=== PATIENT | male | born 1965 | race Caucasian/White ===

== ENCOUNTER 2018-11-11 09:32 | Observation (INO) ==
[2018-11-06 10:31] LABS: BASO# 0.09 X1000 (0.0-0.2); IMM GRAN# 0.02 X1000 (0.0-0.04); IMM GRAN% 0.2 % (0.0-0.5)
--- NOTE | 2018-11-06 10:36 | EKG Report ---
Test Performed on : 11/06/2018 10:19:17 AM Test Reason : PAT Blood Pressure : / mmHG Vent. Rate : 091 BPM Atrial Rate : 091 BPM P-R Int : 164 ms QRS Dur : 094 ms QT Int : 338 ms P-R-T Axes : 060 057 066 degrees QTc Int : 415 ms Normal sinus rhythm. Normal ECG No previous ECGs available Unconfirmed Result
[2018-11-06 12:16] LABS: EOS# 0.44 X1000 (0.0-0.7); EOS% 4.7 % (0.0-10.0); HEMOGLOBIN 16.9 g/dL (14.0-18.0); LYMPH# 1.95 X1000 (1.2-3.4); LYMPH% 20.7 % (20.5-51.1); MCH 32.4 PG (27-31); MCHC 34.5 g/dL (33-37); MCV 93.9 FL (81-99); MONO# 1.35 X1000 (0.11-0.59); MONO% 14.3 % (1.7-9.3); MPV 11.1 FL (7.4-10.4); NEUT# 5.56 X1000 (1.4-6.5); NEUT% 59.1 % (42.2-75.2); PLT 300 X1000 (130-400); RBC 5.22 XMIL (4.7-6.1); RDW 12.5 % (11.5-14.5); WBC 9.41 X1000 (4.8-10.8)
[2018-11-11] MEDS ORDERED: REGLAN ONE (10:35)
[2018-11-11] MEDS ORDERED: PEPCID ONE (10:35)
[2018-11-11] MEDS ORDERED: KEFZOL 1 GM/D5W 1 GM/50 ML IVPB ONE (10:35)
[2018-11-11] MEDS ORDERED: LR 1,000 ML ONE (10:35)
[2018-11-11] MEDS ORDERED: XYLOCAINE-MPF 1%/EPI 1:200,000 ONE (11:18)
[2018-11-11 11:19] LABS: AGAP 13; BUN 5 mg/dL (8-22); CALCIUM 11.2 mg/dL (8.8-10.2); CHLORIDE 98 mmol/L (98-107); COSMO 269; CREATININE 0.9 mg/dL (0.7-1.2); ESTIMATED GFR > 60; GLUCOSE 132 mg/dL (70-104); POTASSIUM 4.3 mmol/L (3.5-5.1); SODIUM 135 mmol/L (136-145); TCO2 24 mmol/L (25-35)
[2018-11-11] MEDS ORDERED: QUELICIN (DOSE) ONE (11:51)
[2018-11-11] MEDS ORDERED: XYLOCAINE-MPF 2% ONE (11:51)
[2018-11-11] MEDS ORDERED: DIPRIVAN 1% ONE (11:52)
[2018-11-11] MEDS ORDERED: ZEMURON ONE (12:11)
[2018-11-11] MEDS ORDERED: FENTANYL ONE (12:12)
[2018-11-11] MEDS ORDERED: ZOFRAN ONE (12:38)
[2018-11-11] MEDS ORDERED: DECADRON ONE (12:38)
[2018-11-11] MEDS ORDERED: ROBINUL ONE (13:12)
[2018-11-11] MEDS ORDERED: NEOSTIGMINE ONE (13:14)
[2018-11-11] MEDS ORDERED: MORPHINE ONE (13:58)
--- NOTE | 2018-11-11 14:29 | OPERATIVE NOTE ---
PROCEDURE DATE: 11/11/2018 PREOPERATIVE DIAGNOSIS: Primary hyperparathyroidism. POSTOPERATIVE DIAGNOSIS: Primary hyperparathyroidism. PRINCIPAL PROCEDURE: Right inferior parathyroidectomy. SURGEON: Radha Ross MD. HAND CEMENTER: Dr. Xavier Abbott. ANESTHESIA: General in addition to local anesthetic. ESTIMATED BLOOD LOSS: 20 mL. DRAINS: None. INDICATIONS: Mr. Adam Vasquez is a 53-year-old white male who is a patient of Dr. Haily Kan. He underwent laboratory evaluation as part of a yearly exam which documented a high calcium. PTH was checked and it was also high. These labs have been checked several times and continue to be both elevated, consistent with primary hyperparathyroidism. Preoperatively his calcium was 11.3 and his parathyroid hormone was 119. A sestamibi scan suggested that he had an enlarged right inferior parathyroid gland. FINDINGS: We only dissected the right side. We found an enlarged inferior parathyroid gland, dissected it free, removed it in its entirety, and sent it down to the pathologist and she documented that it was consistent with parathyroid hyperplasia. His thyroid was involuted or very small. He is on Synthroid regularly. We felt that we had found the enlarged parathyroid gland in the right inferior aspect of the thyroid gland like the sestamibi scan suggested. Our PTH level was actually very high and we were not confident that it was accurate. I was comfortable that we found an abnormal gland and we stopped the operation. We did not dissect the left side. DESCRIPTION OF PROCEDURE: The patient was brought to the operating room, placed supine, received general anesthesia, was intubated. He was placed in the reverse Trendelenburg position. His anterior neck was prepped and draped within a sterile field. He received Ancef prophylactically. I made an 8 cm curvilinear incision along the anterior aspect of the neck using a 15 blade scalpel after local anesthetic was infused. This incision was carried down through the skin, into the subcutaneous tissue, and then I used cautery to transect the rest of the subcutaneous tissue and platysma muscle. We created subplatysmal planes, both superiorly and inferiorly, again, mostly with blunt finger dissection and the cautery. I used a Gelpi for self-retaining retraction and also used handheld retractors. We created the midline inferiorly to superiorly using forceps to grab the strap muscles. As we defined the midline, I dissected the strap muscles off his thyroid gland which was quite small and involuted. Once I had the strap muscles completely off the right lobe of the thyroid, I used hemostats, forceps, and tissue scissors to separate the fat and identify this abnormal right parathyroid gland in the inferior aspect. Care was taken to remove it in its entirety. I used a small clip cleaner touch up worker to control the bleeding. It was sent to the pathologist for frozen section to assure that it was parathyroid tissue. While we were waiting for this frozen section result, I dissected more around the right thyroid lobe and did not find any more abnormal parathyroid tissue. We felt we preserved the right recurrent laryngeal nerve. We decided against dissecting the left side of the thyroid. We decided against leaving any drains. We reapproximated the strap muscles in the midline with interrupted 3-0 Vicryl stitches. We reapproximated the platysma muscle with 3-0 Vicryl stitches. The skin was closed with 4-0 Monocryl subcuticular stitch. Steri-Strips were applied. It must be noted that Dr. Abbott was present throughout the case. His presence was necessary for help with retraction and also decision making with the parathyroid tissue. cc: MD Haily Ramirez MD
[2018-11-11] MEDS ORDERED: MOTRIN PO PRN (15:17)
[2018-11-11] MEDS ORDERED: TYLENOL PO PRN (15:18)
[2018-11-11] MEDS ORDERED: VENTOLIN HFA INH PRN (15:47)
[2018-11-11] MEDS: ULTRAM PO PRN (18:40)
[2018-11-11] MEDS: VALIUM PO PRN (22:26)
[2018-11-11] MEDS: CATAPRES PO SCH (22:26)
[2018-11-12] MEDS: ULTRAM PO PRN ×3 (01:07→20:03)
[2018-11-12] MEDS: LOTREL 5/20 MG PO SCH (08:54)
[2018-11-12] MEDS: SYNTHROID PO SCH (09:01)
[2018-11-12 11:34] LABS: CALCIUM 11.2 mg/dL (8.8-10.2); PHOSPHORUS 2.7 mg/dL (2.7-4.5)
--- NOTE | 2018-11-12 11:43 | PROGRESS NOTE ---
DATE: 11/12/2018 Mr. Adam Vasquez is postop day 1 from a parathyroidectomy. We removed the right inferior parathyroid gland but his calcium this morning is the same, 11.2. We do not have a parathyroid hormone level and we will get that this morning. I was valarie with him and his at the bedside. Despite having pathology confirmed parathyroid tissue, right inferior aspect of the right parathyroid gland, his calcium has not changed. If his parathyroid hormone remains high, we need to consider reexploring his neck since I did not look at the left side of his neck. His voice is also hoarse. His incision is closed with Steri-Strips and seems to be fine, as does the patient. It must be noted that he drinks beers daily. His heart rate is 102, blood pressure 155/84, O2 saturation 95%, he is afebrile. PLAN: I will talk with him again this afternoon about his PTH level and we will decide, if it is elevated, whether we will reexplore his neck versus let him get over this operation and consider reimaging to find a persistent parathyroid adenoma. cc: Radha Ross MD
[2018-11-12 15:11] LABS: CALCIUM 11.1 mg/dL (8.8-10.2); PHOSPHORUS 2.5 mg/dL (2.7-4.5)
--- NOTE | 2018-11-12 17:47 | PROGRESS NOTE ---
DATE: 11/12/2018 SUBJECTIVE: Mr. Adam Vasquez's calcium and parathyroid hormone remain elevated postop day #1 status post right parathyroidectomy. At the time of surgery, I did not dissect the left side feeling that I had found the parathyroid adenoma. I am concerned that he continues to have a parathyroid adenoma that was missed. I discussed treatment options, including taking him back to surgery early in the postop period before a lot of scarring to examine the left side of the neck for parathyroid tissue versus waiting 6 to 8 months and reimaging to try to find the parathyroid gland. I am also worried that his voice is hoarse and discussed that with him. We will recheck parathyroid hormone and calcium in the morning and I will touch base with him again about proceeding with re-exploration of the neck tomorrow afternoon in attempts to find this parathyroid adenoma. His was present during our discussion. cc: Radha Ross MD
[2018-11-12] MEDS: CATAPRES PO SCH (20:03)
[2018-11-12] MEDS: CRESTOR PO SCH (20:03)
[2018-11-12] MEDS: VALIUM PO PRN (22:42)
[2018-11-13] MEDS: SYNTHROID PO SCH (06:34)
--- NOTE | 2018-11-13 08:34 | PROGRESS NOTE ---
DATE: 11/13/2018 Mr. Vasquez is a 53-year-old white male who is now postop day 2 from a parathyroidectomy for primary hyperparathyroidism. I removed what I felt was his right lower parathyroid gland. I felt it was enlarged. It was confirmed parathyroid tissue by our pathologist consistent with hyperplasia. At the time of surgery, post resection parathyroid hormone level was abnormally high. I felt it was unreliable and we stopped the operation. However on postop day 1 his calcium was the same at 11.2 and his PTH remained high and we discussed treatment options and we have decided on re-exploration of his neck prior to scarring. His voice is a little bit hoarse and his throat sore. I felt that I preserved the recurrent right laryngeal nerve although it is concerning that his voice is hoarse. We discussed surgical treatment options including taking him back to surgery during this hospitalization versus waiting 6-8 months and even re-evaluation at [facility]. He wants to proceed with re-exploration. We discussed risks of this, increased risk of recurrent laryngeal nerve injury, maybe not being able to find the parathyroid adenoma and him remaining with an elevated calcium. He also understands that if he has 4 gland hyperplasia, we will have to remove these glands and maybe autotransplant some tissue and that may cause transient hypoparathyroidism. He wants to proceed. cc: Radha Ross MD
[2018-11-13 08:38] LABS: CALCIUM 10.8 mg/dL (8.8-10.2); PHOSPHORUS 2.7 mg/dL (2.7-4.5)
[2018-11-13] MEDS: LOTREL 5/20 MG PO SCH (12:38)
[2018-11-13] MEDS ORDERED: DIPRIVAN 1% ONE ×2 (13:01→16:37)
[2018-11-13] MEDS ORDERED: XYLOCAINE-MPF 2% ONE (13:01)
[2018-11-13] MEDS ORDERED: QUELICIN (DOSE) ONE (13:05)
[2018-11-13] MEDS ORDERED: SODIUM CHLORIDE 0.9% 10 ML ONE (13:05)
[2018-11-13] MEDS ORDERED: NORCURON ONE (13:05)
[2018-11-13] MEDS ORDERED: ROBINUL ONE ×2 (13:16→16:40)
[2018-11-13] MEDS ORDERED: NEOSTIGMINE ONE ×2 (13:17→16:39)
[2018-11-13] MEDS ORDERED: XYLOCAINE 1% ONE (13:55)
[2018-11-13] MEDS ORDERED: KEFZOL 1 GM/D5W 1 GM/50 ML IVPB ONE (14:00)
[2018-11-13] MEDS ORDERED: XYLOCAINE 1%/EPI 1:100,000 ONE (14:09)
[2018-11-13] MEDS ORDERED: SUFENTA ONE (15:42)
[2018-11-13] MEDS ORDERED: ZOFRAN ONE (15:57)
[2018-11-13] MEDS ORDERED: OFIRMEV 1000 MG/ISOTONIC SOLN 1,000 MG/100 ML BOTTLE ONE (16:00)
[2018-11-13] MEDS ORDERED: DECADRON ONE ×2 (16:00→16:07)
[2018-11-13] MEDS ORDERED: PHENERGAN IV PRN (17:30)
[2018-11-13] MEDS: MORPHINE ONE ×3 (17:30→17:45)
[2018-11-13] MEDS ORDERED: NORCO-10 PO PRN (18:00)
[2018-11-13] MEDS ORDERED: LR 1,000 ML IV SCH (18:00)
[2018-11-13] MEDS ORDERED: MOTRIN PO PRN (18:01)
[2018-11-13] MEDS ORDERED: SODIUM CHLORIDE 0.9% INJ PRN (19:15)
--- NOTE | 2018-11-13 19:28 | OPERATIVE NOTE ---
PROCEDURE DATE: 11/13/2018 PREOPERATIVE DIAGNOSIS: Persistent primary hyperparathyroidism. POSTOPERATIVE DIAGNOSIS: Persistent primary hyperparathyroidism. PRINCIPAL PROCEDURE: Re-exploration of neck with parathyroidectomy, and reimplantation of parathyroid tissue, medial aspect, left sternocleidomastoid muscle. SURGEON: Radha Ross MD. REJOGGER: 1. Dr. Herb Elkins. 2. Dr. Abbott. 3. Dr. Ivory. ESTIMATED BLOOD LOSS: 30 mL. DRAINS: None. INDICATIONS: Mr. Adam Vasquez is a 53-year-old white male, whom I operated on initially on the day of admission, 11/11/2018, for primary hyperparathyroidism. We felt we had found the abnormal gland in the right inferior position, but on postoperative day 1 his calcium was 11.2 and his PTH was still over 100. We discussed treatment options and we felt we should take him back to surgery for re-exploration of the neck before a lot of scarring takes place. I reviewed all his data. His calcium has been persistently high as has his parathyroid hormone level. A sestamibi scan performed at [facility] suggested a right-sided parathyroid adenoma. I discussed it with the patient and his , and they agreed to return to the operating room on postoperative day 2. FINDINGS: It took us 3 hours to find the right-sided parathyroid adenoma, and actually it was only when Dr. Ivory came in with another set of eyes that he identified this enlarged parathyroid gland on the right at the level of the esophagus, and this was probably the right superior gland. It was even deeper than the tracheoesophageal groove. It must be noted that it was clearly abnormal, this gland. The one I removed yesterday was probably the right inferior parathyroid gland. I removed the gland with some fat attached to it, thinking that it was abnormal. We also removed the left inferior gland as we dissected and were looking for this parathyroid adenoma, but we cut this gland in half before sending it to the pathologist, and I reimplanted it because I never really identified the left superior parathyroid gland, and I was worried about the amount of parathyroid tissue left in the neck. We felt we identified the right recurrent laryngeal nerve and preserved it, but certainly we did a lot of pushing on his trachea. Our dissection on the left was limited, and we felt we preserved the recurrent laryngeal nerve on the left. We did a complete thymectomy, looking for this parathyroid adenoma. DESCRIPTION OF PROCEDURE: The patient was hoarse prior to this operation, and he was brought to the operating room and intubated. His anterior neck was prepped and draped within a sterile field. He received Ancef prophylactically. He was placed in reverse Trendelenburg with his neck extended, and I reopened his neck with a 15 blade scalpel. Initially, it was Dr. Abbott and [place], but then Dr. Estevez came to relieve Dr. Abbott, and as we were about ready to finish this operation, I asked Dr. Ivory to look in to see if he could find the parathyroid adenoma, and he was instrumental in finding it on the right side. I reopened the skin with a 15 blade scalpel, then we reopened the platysma. We had our subplatysmal flaps and I used a Gelpi for retraction. I reopened the strap muscles that were closed in the midline with a suture, and with blunt finger dissection, I took the strap muscles off the right side of the thyroid. It must be noted that his thyroid was involuted and very scarred, and that made part of this dissection difficult because the anatomy of the thyroid was very distorted because it was scarred down. We began looking on the right side again, mostly Dr. Elkins and I, with forceps and hemostats. We removed the thymus from underneath the sternum completely and we did not see the parathyroid within the thymus. We dissected fat. We identified the recurrent laryngeal nerve, and really we felt that we thoroughly explored the right side. We then went to the left side which had not been dissected, so the scarring was less and the inflammation was less. We identified the left inferior parathyroid gland and removed it, because we felt maybe it was more enlarged than it looked, before sending it to the pathologist. We divided it in half with the 15 blade scalpel, and saved some of this tissue for reimplantation if we needed it. We dissected the left side pretty thoroughly. We never identified the left superior gland. We went back to the right side. I asked Dr. Ivory to step in to see with a new set of eyes if he could identify the parathyroid, and actually he did, in the right side of the neck deep in the neck, at about the level of the esophagus superiorly. We felt that our parathyroid adenoma was the superior right parathyroid gland. It must be noted that throughout this operation, we were drawing PTH levels and we were sending specimens down to the pathologist for frozen section to identify parathyroid tissue. We felt that once we identified this parathyroid adenoma superiorly, we could stop the operation. I thoroughly irrigated the neck. I reapproximated the strap muscles in the midline with 3-0 Popoff Vicryl stitches. We reapproximated the platysma with 3-0 Popoff Vicryl stitches, and I closed the skin with 4-0 Monocryl subcuticular stitch, and dressings were applied. Plans are for him to go to the recovery room, and then return to his room on the floor as long as he is breathing okay. I spoke with his after the procedure. cc: Radha Ross MD
[2018-11-13] MEDS: CRESTOR PO SCH (22:03)
[2018-11-13] MEDS: PERIDEX MT SCH (22:03)
[2018-11-13] MEDS: CATAPRES PO SCH (22:03)
[2018-11-13] MEDS: VALIUM PO PRN (22:07)
[2018-11-14] MEDS: SYNTHROID PO SCH (06:13)
[2018-11-14 07:35] VITALS: BP 130/88
[2018-11-14] MEDS: LOTREL 5/20 MG PO SCH (08:47)
[2018-11-14] MEDS: PERIDEX MT SCH (08:47)
[2018-11-14] MEDS ORDERED: TUMS PO SCH (09:00)
--- NOTE | 2018-11-14 11:13 | PROGRESS NOTE ---
DATE: 11/14/2018 Mr. Vasquez underwent re-exploration of his neck yesterday, and we did find a right parathyroid adenoma. His calcium today is 9.8 with his PTH intact at 34. He is hoarse. There is no undue swelling of his anterior neck and he wants to go home. He will have to go home with supplemental calcium. I will get him symptoms of hypocalcemia, and prescriptions for calcium and possibly p.o. vitamin D. He will follow up in my outpatient office next week. cc: MD Haily Ramirez MD
--- NOTE | 2018-11-15 05:10 | DISCHARGE SUMMARY ---
ADMISSION DATE: 11/11/2018 DISCHARGE DATE: 11/14/2018 ADMITTING DIAGNOSIS: Primary hyperparathyroidism. DISCHARGE DIAGNOSIS: Primary hyperparathyroidism. PRINCIPLE PROCEDURE: 1. Parathyroidectomy on 11/11/2018. 2. Re-exploration of neck with parathyroidectomy and reimplantation of parathyroid tissue, left sternocleidomastoid muscle, and thymectomy. DISCHARGE DISABILITY: Full. DISCHARGE DISPOSITION: He will return to our outpatient offices next week for followup. DISCHARGE DIET: Regular. DISCHARGE MEDICATIONS: Calcium carbonate 1000 mg 4 times daily. HOSPITAL COURSE: Mr. Adam Vasquez is a 53-year-old white male patient of Dr. ANDRE Kan who had primary hyperparathyroidism. His calcium was 11.2, PTH 129, and he has had a sestamibi scan performed at [facility] which suggested that this adenoma was on the right side of his neck. He was admitted on the day of surgery and I performed removal of his inferior right parathyroid gland, feeling that it was abnormal. However, his calcium remained elevated as did his PTH on postop day 1, and we decided on postop day 2, to take him back to surgery and re-explore his neck for the parathyroid adenoma. This was a difficult procedure, it lasted 3 hours, but we were able to find the parathyroid adenoma in the right superior position. Prior to finding this parathyroid adenoma, I removed what I felt was the left inferior parathyroid gland and I reimplanted half that gland into the medial aspect of the left sternocleidomastoid muscle so that I knew that we had some parathyroid tissue. On postop day 1 from the 2nd operation, his calcium was 9.6, with a PTH level of 37. He was hoarse, but we felt during surgery we preserved both recurrent laryngeal nerves. His wound had some swelling but it was not abnormal, it was felt safe to discharge him home under the care of his on p.o. Tums with followup in my outpatient offices. He was given symptoms of hypocalcemia so that he could contact us or return to the emergency room. He knows to contact us with any wound problems. cc: MD Haily Ramirez MD
== END 2018-11-14 12:12 | disposition home or self-care (01) ==
LOC: 4N 09:32 → OPS 09:32
PROVIDERS: ADMIT Surgery; ATTEND Surgery
CPT/HCPCS: 80048; 82310; 83970; 84100; 85025; 88304; 88305; 88331; 93005; 93010; 94761; 94799; A9270; J0131; J0330; J0690; J1100; J2270; J2405; J3010; J7120